=== PATIENT | male | born 1985 | race Caucasian/White ===

== ENCOUNTER 2020-05-10 17:50 | Emergency (ER) | payer OTHER ==
[~2020-05-10] VITALS: Ht 180.3 cm; Wt 100.0 kg
[2020-05-10] MEDS ORDERED: normal saline 1000ML IV soln IVB ONE (18:30)
[2020-05-10] MEDS ORDERED: ketorolac tromethamine 15mg/ml inj. IM ONE (18:40)
[2020-05-10] MEDS ORDERED: iohexol 300mg/ml 100ml inj. ONE (18:52)
--- NOTE | 2020-05-10 18:57 | NUR ---
PT WAS PLACED INTO MY ROOM, I STARTED IV AND ADDY BLOOD AND CT NOW TOOK HIM. PT REPEATS HIMSELF, HE EITHER HAS A HABIT OF REPEATING HIMSELF OR HE HAS A CONCUSSION.
[2020-05-10 19:04] LABS: BASOPHILS # (AUTO) 0.1 X10'3 (0-0.2); BASOPHILS % (AUTO) 0.6 % (0-1); EOSINOPHILS # (AUTO) 0.3 X10'3 (0-0.9); EOSINOPHILS % (AUTO) 2.4 % (0-6); HEMATOCRIT 49.2 % (42.0-52.0); HEMOGLOBIN 16.3 g/dl (14.0-17.9); LYMPHOCYTES # (AUTO) 4.6 X10'3 (1.1-4.8); LYMPHOCYTES % (AUTO) 34.4 % (21-51); MEAN CORPUSCULAR HEMOGLOBIN 29.6 PG (27.0-31.0); MEAN CORPUSCULAR HGB CONC 33.1 g/dL (33.0-36.5); MEAN CORPUSCULAR VOLUME 89.2 FL (78-98); MEAN PLATELET VOLUME 7.6 FL (7.4-10.4); MONOCYTES # (AUTO) 0.7 X10'3 (0-0.9); MONOCYTES % (AUTO) 5.3 % (2-12); NEUTROPHILS # (AUTO) 7.6 X10'3 (1.8-7.7); NEUTROPHILS % (AUTO) 57.3 % (42-75); PLATELET COUNT 320 X10'3 (140-440); RED BLOOD COUNT 5.52 X10'6 (4.70-6.10); WHITE BLOOD COUNT 13.2 X10'3 (4.5-11.0)
[2020-05-10 19:19] LABS: ALANINE AMINOTRANSFERASE 50 U/L (12-78); ALBUMIN/GLOBULIN RATIO 0.9 (1.1-1.5); ALKALINE PHOSPHATASE 113 IU/L (46-116); ANION GAP 14 (8-16); ASPARTATE AMINO TRANSFERASE 27 U/L (10-37); BILIRUBIN,TOTAL 0.3 MG/DL (0.1-1.0); BLOOD UREA NITROGEN 15 MG/DL (7-18); BUN/CREATININE RATIO 15.5 (5.4-32.0); CALCIUM 8.9 MG/DL (8.5-10.1); CHLORIDE 112 MMOL/L (99-107); CREATININE 0.97 MG/DL (0.60-1.10); ETHANOL 0.222 GM/DL (0.0-0.010); GLUCOSE 115 MG/DL (70-104); POTASSIUM 4.3 MMOL/L (3.5-5.1); SODIUM 149 MMOL/L (135-145); TOTAL CARBON DIOXIDE 23.5 MMOL/L (24-32); TOTAL PROTEIN 8.5 G/DL (6.4-8.2); eGFR 88 ML/MIN
[2020-05-10] MEDS ORDERED: acetaminophen 325mg tablet PO ONE (20:00)
--- NOTE | 2020-05-10 20:04 | NUR ---
gave the pt a urinal so he can void
[2020-05-10 20:13] VITALS: BP 143/92
== END 2020-05-10 20:16 ==
LOC: ER 17:51
DX: M54.5 Low back pain (principal); R47.81 Slurred speech; V89.2XXA Person injured in unspecified motor-vehicle accident, traffic, initial encounter; Y93.89 Activity, other specified; Y92.89 Other specified places as the place of occurrence of the external cause; Y99.8 Other external cause status
CPT/HCPCS: 36415; 70450; 71260; 72125; 74177; 80053; 80320; 85025; 85610; 93005; 99285; J7030; Q9967

== ENCOUNTER 2021-05-17 02:48 | Emergency (ER) | payer MEDICAID ==
[~2021-05-17] VITALS: Ht 175.3 cm; Wt 130.0 kg
[2021-05-17 02:57] VITALS: BP 121/57
[2021-05-17] MEDS ORDERED: diphenhydrAMINE 50 mg/ml inj IM ONE (03:40)
[2021-05-17] MEDS ORDERED: haloperidol lactate 5mg/ml inj IM ONE (03:40)
== END 2021-05-17 06:58 | disposition home or self-care (01) ==
LOC: ER 02:49
DX: F15.10 Other stimulant abuse, uncomplicated (principal); M79.606 Pain in leg, unspecified; R45.1 Restlessness and agitation; R11.0 Nausea; Z88.8 Allergy status to other drugs, medicaments and biological substances
CPT/HCPCS: 96372; 99284; J1200; J1630

== ENCOUNTER 2021-08-14 08:26 | Inpatient (IN) | payer MEDICAID ==
[~2021-08-14] VITALS: Ht 177.8 cm; Wt 90.9 kg
[2021-08-14] MEDS ORDERED: ondansetron/PF 4mg/2ml inj IV ONE (08:45)
[2021-08-14] MEDS ORDERED: morphine 4 MG/ML inj SYRINge IV PRN (08:45)
[2021-08-14 09:23] LABS: BASOPHILS # (AUTO) 0.1 X10'3 (0-0.2); EOSINOPHILS % (AUTO) 0.4 % (0-6); HEMATOCRIT 35.4 % (42.0-52.0); HEMOGLOBIN 11.3 g/dl (14.0-17.9); LYMPHOCYTES # (AUTO) 1.8 X10'3 (1.1-4.8); LYMPHOCYTES % (AUTO) 20.9 % (21-51); MEAN CORPUSCULAR HEMOGLOBIN 25.6 PG (27.0-31.0); MEAN CORPUSCULAR VOLUME 79.8 FL (78-98); MEAN PLATELET VOLUME 7.3 FL (7.4-10.4); MONOCYTES # (AUTO) 0.8 X10'3 (0-0.9); MONOCYTES % (AUTO) 9.4 % (2-12); NEUTROPHILS # (AUTO) 5.9 X10'3 (1.8-7.7); NEUTROPHILS % (AUTO) 68.3 % (42-75); PLATELET COUNT 176 X10'3 (140-440); RED BLOOD COUNT 4.44 X10'6 (4.70-6.10); RED CELL DISTRIBUTION WIDTH 19.4 % (11.5-14.5); WHITE BLOOD COUNT 8.6 X10'3 (4.5-11.0)
[2021-08-14] MEDS ORDERED: normal saline 1000ML IV soln IVB ONE (09:25)
--- NOTE | 2021-08-14 09:30 | NUR ---
pt c/o pain and states hes withdrawing from his oxycodone he last took 15 hrs ago. pt hypotensive and mumbled speech to point need to clarify each sentence. pt drowsey and not showing signs of withdraw. dr castillo notified and dc'd pt pain meds and ordered ns bolus. NS started will continue to [facility].
[2021-08-14 09:42] LABS: ALANINE AMINOTRANSFERASE 30 U/L (12-78); ALBUMIN 3.1 G/DL (3.4-5.0); ALBUMIN/GLOBULIN RATIO 0.8 (1.1-1.5); ALKALINE PHOSPHATASE 129 IU/L (46-116); ANION GAP 10 (8-16); ASPARTATE AMINO TRANSFERASE 60 U/L (10-37); BLOOD UREA NITROGEN 28 MG/DL (7-18); BUN/CREATININE RATIO 19.9 (5.4-32.0); CALCIUM 8.8 MG/DL (8.5-10.1); CHLORIDE 83 MMOL/L (99-107); CREATININE 1.41 MG/DL (0.60-1.10); ETHANOL < 0.010 GM/DL (0.0-0.010); GLUCOSE 114 MG/DL (70-104); LIPASE 306 U/L (73-393); POTASSIUM 4.9 MMOL/L (3.5-5.1); TOTAL CARBON DIOXIDE 21.8 MMOL/L (24-32); TOTAL PROTEIN 7.1 G/DL (6.4-8.2); TROPONIN I < 0.04 NG/ML (0.0-0.05); eGFR 57 ML/MIN
[2021-08-14 09:45] LABS: SODIUM 115 MMOL/L (135-145)
[2021-08-14 09:55] LABS: ANISOCYTOSIS 2+; MICROCYTOSIS 1+; PLATELET ESTIMATE NORMAL
[2021-08-14 09:56] LABS: ACANTHOCYTES FEW; BURR CELLS 1+; ELLIPTOCYTES FEW; POLYCHROMASIA FEW
[2021-08-14 09:57] LABS: LARGE PLATELETS FEW
[2021-08-14 10:38] LABS: CLARITY,URINE CLOUDY (Clear); COLOR,URINE YELLOW (Yellow); UA COLLECTION TYPE CLN CATCH MIDSTREAM
[2021-08-14 10:39] LABS: GLUCOSE, URINE NEGATIVE (Neg); KETONES,URINE NEGATIVE (Neg); NITRITES, URINE POSITIVE (Neg); OCCULT BLOOD,URINE MODERATE (Neg); PROTEIN,URINE TRACE mg/dl (Neg)
[2021-08-14 10:41] LABS: LEUKOCYTE ESTERASE ,URINE SMALL (Neg)
[2021-08-14 10:42] LABS: UROBILINOGEN,URINE 0.2 E.U/dL (0.2-1.0)
--- NOTE | 2021-08-14 10:55 | NUR ---
pt had 6 blankets and still wanting blankets and even asked for a popsicle.
[2021-08-14 11:00] LABS: HYALINE CASTS 0-3 /LPF (NEGATIVE); SQUAMOUS EPITHELIAL CELL,UR FEW /LPF (FEW); WBC CLUMPS,URINE MODERATE /HPF (NEGATIVE)
[2021-08-14 11:01] LABS: BACTERIA,URINE 3+ /HPF (Neg); RBC,URINE 20-50 /HPF (0-2); WBC,URINE 30-50 /HPF (0-4)
[2021-08-14 11:12] LABS: URINE AMPHETAMINE SCREEN NEGATIVE (Neg); URINE BARBITUATE SCREEN NEGATIVE (Neg); URINE BENZODIAZEPINES SCREEN NEGATIVE (Neg); URINE CANNABINOID SCREEN NEGATIVE (Neg); URINE COCAINE SCREEN NEGATIVE (Neg); URINE METHADONE SCREEN NEGATIVE (Neg); URINE OPIATE SCREEN POSITIVE (Neg); URINE PHENCYCLIDINE SCREEN NEGATIVE (Neg)
--- NOTE | 2021-08-14 11:45 | NUR ---
Pt is up and standing next to the commode. Stated that he can't use a urinal because his scrotum is swollen. He picked up the commode and held it up like a urinal. Then he urinated on the floor. He mumbles and his speech is slurred. He has and unsteady gait. Assisted back to bed. Pt states that his feet hurt and that he needs pain medication. I explained that his b/p is too low to administer a narcotic. He rambled on about using 90 pain pill reciently.
[2021-08-14] MEDS ORDERED: CefTRIAXone 2gm/D5W 50ml BAG 50 ML IV ONE (12:20)
[2021-08-14] MEDS ORDERED: CARV3.1244 PO (12:32)
[2021-08-14] MEDS ORDERED: OXYC-658 PO (12:32)
[2021-08-14] MEDS ORDERED: SERT-433 PO (12:32)
[2021-08-14] MEDS ORDERED: METF-950 PO (12:32)
[2021-08-14] MEDS ORDERED: MIDO5TAB4 PO (12:32)
[2021-08-14] MEDS ORDERED: HYDR-3686 PO (12:32)
[2021-08-14] MEDS ORDERED: SPIR50TA5 PO (12:32)
[2021-08-14] MEDS ORDERED: PROM25TA14 PO (12:32)
[2021-08-14] MEDS ORDERED: GABA300C PO (12:32)
[2021-08-14] MEDS ORDERED: LISI-790 PO (12:32)
[2021-08-14] MEDS ORDERED: INSU100I45 SQ (12:32)
[2021-08-14] MEDS ORDERED: GABA-530 PO (12:32)
[2021-08-14] MEDS ORDERED: BUME1TAB8 PO (12:32)
[2021-08-14] MEDS ORDERED: FURO40TA4 PO (12:32)
--- NOTE | 2021-08-14 13:41 | NUR ---
Placed pt on 2L NC due to low O2 saturation. Pt keeps removing his O2 sat monitor. He repeatedly asks for 1/2 of ice and warm blankets. It has been explained that he NPO. He occationally yells out that he needs help eventhough he has a call light within reach. He tossed off his blankets and stated that he is leaving if he does not get his ice.
[2021-08-14] MEDS ORDERED: mag hydrox/Alum hydrox/simeth 30ml oral suspension PO PRN (15:35)
[2021-08-14] MEDS ORDERED: potassium Cl 40MEQ/1/2NS 520ml 520 ML IV PRN ×2 (15:35)
[2021-08-14] MEDS ORDERED: magnesium 2GM in 50ml NS 50 ML IV PRN (15:35)
[2021-08-14] MEDS ORDERED: magnesium hydroxide 30ml (MOM) UD suspension PO PRN (15:35)
[2021-08-14] MEDS ORDERED: metoclopramide 5 mg/ml inj IV PRN (15:35)
[2021-08-14] MEDS ORDERED: magnesium Cl slow-release 64mg tablet PO PRN (15:35)
[2021-08-14] MEDS ORDERED: potassium Cl 20 mEq SR tablet PO PRN ×2 (15:35)
[2021-08-14] MEDS ORDERED: magnesium 4gm in 100ml NS 100 ML IV PRN (15:35)
[2021-08-14] MEDS ORDERED: ondansetron/PF 4mg/2ml inj IV PRN (15:35)
[2021-08-14] MEDS ORDERED: acetaminophen 325mg tablet PO PRN (15:35)
[2021-08-14] MEDS ORDERED: MESSAGE TO PHARMACY PO ONE (15:45)
[2021-08-14] MEDS ORDERED: glucagon, human recombinant 1mg kit SUBCUT PRN (15:45)
[2021-08-14] MEDS ORDERED: dextrose 50%-water 50ml dispensing syringe IV PRN ×2 (15:45)
[2021-08-14] MEDS ORDERED: hydrOXYzine 25 MG tablet PO PRN (15:45)
[2021-08-14] MEDS ORDERED: insulin Lispro (HumaLOG) vial - multi-dose SQ SCH (15:45)
[2021-08-14] MEDS ORDERED: dextrose ORAL solution 15 GM/59 ML bottle PO PRN ×2 (15:45)
[2021-08-14] MEDS: furosemide 20 MG/2 ML vial IV SCH ×2 (16:04→22:31)
[2021-08-14 16:55] LABS: HEMOGLOBIN A1C 6.9 % (4.5-6.2)
[2021-08-14 17:18] LABS: PARTIAL THROMBOPLASTIN TIME 29 SECONDS (22-32)
[2021-08-14 20:29] LABS: ALBUMIN 3.1 G/DL (3.4-5.0); ANION GAP 12 (8-16); BLOOD UREA NITROGEN 29 MG/DL (7-18); BUN/CREATININE RATIO 18.4 (5.4-32.0); CALCIUM 8.5 MG/DL (8.5-10.1); CHLORIDE 86 MMOL/L (99-107); CREATININE 1.58 MG/DL (0.60-1.10); GLUCOSE 140 MG/DL (70-104); TOTAL CARBON DIOXIDE 21.2 MMOL/L (24-32); eGFR 50 ML/MIN
[2021-08-14 20:40] LABS: SODIUM 119 MMOL/L (135-145)
[2021-08-14] MEDS ORDERED: INSULIN LISPRO 7 UNIT SQ SCH (21:00)
[2021-08-14] MEDS ORDERED: temazepam 15mg capsule PO PRN (21:00)
[2021-08-14] MEDS: insulin glargine (Lantus) pen - multi-dose SQ SCH (21:00)
[2021-08-14] MEDS: heparin, porcine 5000 units/ml vial SQ SCH (21:04)
[2021-08-14] MEDS: docusate sod 100mg capsule PO SCH (21:04)
[2021-08-14] MEDS: carVEDilol 3.125mg tablet PO SCH (21:04)
[2021-08-14] MEDS: gabapentin 300mg capsule PO SCH (21:08)
[2021-08-14] MEDS: K and/or MAG REPLACEMENT MC SCH (21:10)
[2021-08-14] MEDS: midodrine 5mg tablet PO SCH (22:59)
[2021-08-15 00:45] VITALS: BP 97/66
--- NOTE | 2021-08-15 00:45 | NUR ---
PATIENT ADMITTED TO ROOM 360B FROM ER FOR HYPONATREMIA. PLACED COMFORTABLE IN BED. VITAL SIGNS TAKEN AND RECORDED.
[2021-08-15 03:01] LABS: BASOPHILS % (AUTO) 0.2 % (0-1); EOSINOPHILS # (AUTO) 0.1 X10'3 (0-0.9); EOSINOPHILS % (AUTO) 0.6 % (0-6); HEMATOCRIT 32.4 % (42.0-52.0); HEMOGLOBIN 10.5 g/dl (14.0-17.9); LYMPHOCYTES # (AUTO) 1.7 X10'3 (1.1-4.8); LYMPHOCYTES % (AUTO) 18.2 % (21-51); MEAN CORPUSCULAR HEMOGLOBIN 25.5 PG (27.0-31.0); MEAN CORPUSCULAR HGB CONC 32.5 g/dL (33.0-36.5); MEAN CORPUSCULAR VOLUME 78.3 FL (78-98); MEAN PLATELET VOLUME 7.4 FL (7.4-10.4); MONOCYTES % (AUTO) 10.9 % (2-12); NEUTROPHILS # (AUTO) 6.6 X10'3 (1.8-7.7); NEUTROPHILS % (AUTO) 70.1 % (42-75); PLATELET COUNT 186 X10'3 (140-440); RED BLOOD COUNT 4.14 X10'6 (4.70-6.10); RED CELL DISTRIBUTION WIDTH 19.3 % (11.5-14.5); WHITE BLOOD COUNT 9.4 X10'3 (4.5-11.0)
[2021-08-15 03:19] LABS: ALANINE AMINOTRANSFERASE 31 U/L (12-78); ALBUMIN/GLOBULIN RATIO 0.8 (1.1-1.5); ALKALINE PHOSPHATASE 124 IU/L (46-116); ANION GAP 12 (8-16); ASPARTATE AMINO TRANSFERASE 51 U/L (10-37); BILIRUBIN,TOTAL 2.1 MG/DL (0.1-1.0); BLOOD UREA NITROGEN 28 MG/DL (7-18); BUN/CREATININE RATIO 18.8 (5.4-32.0); CALCIUM 8.6 MG/DL (8.5-10.1); CHLORIDE 88 MMOL/L (99-107); CREATININE 1.49 MG/DL (0.60-1.10); GLUCOSE 145 MG/DL (70-104); MAGNESIUM 2.4 MG/DL (1.5-2.4); POTASSIUM 4.5 MMOL/L (3.5-5.1); SODIUM 122 MMOL/L (135-145); TOTAL CARBON DIOXIDE 22.3 MMOL/L (24-32); TOTAL PROTEIN 6.9 G/DL (6.4-8.2); eGFR 53 ML/MIN
--- NOTE | 2021-08-15 05:00 | NUR ---
CALLED ALAN KLEIN AND WAS INFORMED OF PATIENT'S VERY IRREGULAR HEART RATE FROM 90'S TO 190'S EKG WAS DONE AND WAS SHOWED TO HIM WITH NO NEW ORDERS
--- NOTE | 2021-08-15 06:31 | NUR ---
Problems reprioritized. Patient report given, questions answered & plan of care reviewed with NEMESIO RAI.
[2021-08-15 07:00] VITALS: BP 90/50
[2021-08-15] MEDS: K and/or MAG REPLACEMENT MC SCH ×2 (08:00→20:00)
[2021-08-15] MEDS: sertraline 50mg tablet PO SCH (08:00)
[2021-08-15] MEDS: midodrine 5mg tablet PO SCH ×3 (08:11→19:53)
[2021-08-15] MEDS: docusate sod 100mg capsule PO SCH ×2 (08:11→19:52)
[2021-08-15] MEDS: bumetanide 1mg tablet PO SCH (08:13)
[2021-08-15] MEDS: gabapentin 100mg capsule PO SCH (08:13)
[2021-08-15] MEDS: carVEDilol 3.125mg tablet PO SCH ×2 (08:14→19:45)
[2021-08-15] MEDS: spironolactone 50 MG tablet PO SCH (08:15)
[2021-08-15] MEDS: CefTRIAXone/D5W-Rocephin 1gm 50 ML IV SCH (08:16)
[2021-08-15] MEDS: heparin, porcine 5000 units/ml vial SQ SCH ×2 (08:17→19:45)
[2021-08-15 09:19] LABS: ALBUMIN 2.9 G/DL (3.4-5.0); ANION GAP 11 (8-16); BLOOD UREA NITROGEN 29 MG/DL (7-18); BUN/CREATININE RATIO 20.7 (5.4-32.0); CALCIUM 8.6 MG/DL (8.5-10.1); CHLORIDE 87 MMOL/L (99-107); GLUCOSE 181 MG/DL (70-104); POTASSIUM 4.2 MMOL/L (3.5-5.1); eGFR 57 ML/MIN
[2021-08-15] MEDS: furosemide 20 MG/2 ML vial IV SCH ×3 (09:32→21:50)
[2021-08-15 09:35] LABS: SODIUM 120 MMOL/L (135-145)
--- NOTE | 2021-08-15 09:45 | NUR ---
First time with patient Addendum: 08/15/21 at 0955 by Kristi Yi - Student NIKIA Amended: Links added.
--- NOTE | 2021-08-15 09:52 | NUR ---
Patient was unable to remember when his last bowel movement was Addendum: 08/15/21 at 0955 by Kristi Yi - Student NIKIA Amended: Links added.
--- NOTE | 2021-08-15 11:34 | NUR ---
Received Call from Jory at [facility] who has been following Pt for 2 weeks. At her last phone contact pt was living in a hotel noted to be slurring his words. Jory RN stated his last EF was 10-15% and had been worked up for LVAD. Pt did/t want to give up swimming or showering to have it. Jory advised he call and ambulance to eval his condition
[2021-08-15 14:36] LABS: ANION GAP 12 (8-16); BLOOD UREA NITROGEN 27 MG/DL (7-18); BUN/CREATININE RATIO 19.9 (5.4-32.0); CALCIUM 8.5 MG/DL (8.5-10.1); CHLORIDE 88 MMOL/L (99-107); CREATININE 1.36 MG/DL (0.60-1.10); GLUCOSE 117 MG/DL (70-104); POTASSIUM 4.7 MMOL/L (3.5-5.1); SODIUM 121 MMOL/L (135-145); TOTAL CARBON DIOXIDE 21.5 MMOL/L (24-32); eGFR 59 ML/MIN
--- NOTE | 2021-08-15 14:37 | NUR ---
Called report to Santino RAI on Tele floor. Pt to be transferred for cardiac monitoring.
[2021-08-15 15:00] VITALS: BP 99/60
--- NOTE | 2021-08-15 15:00 | NUR ---
Pt tx via WC to 3012B. all belongings followed from closet containing multiple pill bottles. Recorded and sent to Rx for storage.
--- NOTE | 2021-08-15 15:20 | NUR ---
Received pt from [facility]. Pt standing next to bed agitated. Able to redirect patient. Pt refusing monitor at this time. Pt educated.
[2021-08-15 18:00] VITALS: BP 139/87
--- NOTE | 2021-08-15 18:30 | NUR ---
Patient in room PCU 3012. I have received report from Santino RAI and had the opportunity to ask questions and assume patient care.
[2021-08-15] MEDS: lactobacillus rhamnosus 10,000 MMU CELLS/CAPSULE PO SCH (19:45)
[2021-08-15] MEDS: gabapentin 300mg capsule PO SCH (19:45)
[2021-08-15] MEDS: oxyCODONE IR 5mg (immed. release) tablet PO PRN (19:52)
[2021-08-15] MEDS: LORazepam 1 MG tablet PO PRN (19:52)
[2021-08-15] MEDS: insulin glargine (Lantus) pen - multi-dose SQ SCH (21:00)
[2021-08-15 21:03] LABS: ALBUMIN 3.1 G/DL (3.4-5.0); ANION GAP 12 (8-16); BLOOD UREA NITROGEN 26 MG/DL (7-18); BUN/CREATININE RATIO 18.6 (5.4-32.0); CALCIUM 8.7 MG/DL (8.5-10.1); CHLORIDE 85 MMOL/L (99-107); GLUCOSE 132 MG/DL (70-104); POTASSIUM 4.1 MMOL/L (3.5-5.1); eGFR 57 ML/MIN
[2021-08-15 21:07] LABS: SODIUM 120 MMOL/L (135-145)
[2021-08-15 22:00] VITALS: BP 100/87
[2021-08-16 02:00] VITALS: BP 107/69
[2021-08-16 02:24] LABS: BASOPHILS # (AUTO) 0.1 X10'3 (0-0.2); BASOPHILS % (AUTO) 0.8 % (0-1); EOSINOPHILS # (AUTO) 0.1 X10'3 (0-0.9); EOSINOPHILS % (AUTO) 0.9 % (0-6); HEMATOCRIT 31.8 % (42.0-52.0); HEMOGLOBIN 10.1 g/dl (14.0-17.9); LYMPHOCYTES # (AUTO) 1.8 X10'3 (1.1-4.8); LYMPHOCYTES % (AUTO) 21.1 % (21-51); MEAN CORPUSCULAR HEMOGLOBIN 25.1 PG (27.0-31.0); MEAN CORPUSCULAR HGB CONC 31.6 g/dL (33.0-36.5); MEAN CORPUSCULAR VOLUME 79.3 FL (78-98); MEAN PLATELET VOLUME 7.3 FL (7.4-10.4); MONOCYTES % (AUTO) 11.5 % (2-12); NEUTROPHILS # (AUTO) 5.7 X10'3 (1.8-7.7); NEUTROPHILS % (AUTO) 65.7 % (42-75); PLATELET COUNT 186 X10'3 (140-440); RED BLOOD COUNT 4.01 X10'6 (4.70-6.10); RED CELL DISTRIBUTION WIDTH 19.2 % (11.5-14.5); WHITE BLOOD COUNT 8.7 X10'3 (4.5-11.0)
[2021-08-16 02:39] LABS: ALANINE AMINOTRANSFERASE 29 U/L (12-78); ALBUMIN/GLOBULIN RATIO 0.8 (1.1-1.5); ALKALINE PHOSPHATASE 124 IU/L (46-116); ANION GAP 10 (8-16); ASPARTATE AMINO TRANSFERASE 42 U/L (10-37); BLOOD UREA NITROGEN 27 MG/DL (7-18); BUN/CREATININE RATIO 18.8 (5.4-32.0); CALCIUM 8.4 MG/DL (8.5-10.1); CHLORIDE 87 MMOL/L (99-107); CREATININE 1.44 MG/DL (0.60-1.10); GLUCOSE 110 MG/DL (70-104); MAGNESIUM 2.3 MG/DL (1.5-2.4); POTASSIUM 4.4 MMOL/L (3.5-5.1); TOTAL CARBON DIOXIDE 23.1 MMOL/L (24-32); TOTAL PROTEIN 6.6 G/DL (6.4-8.2); eGFR 55 ML/MIN
[2021-08-16 02:48] LABS: SODIUM 120 MMOL/L (135-145)
[2021-08-16 02:58] LABS: PLATELET ESTIMATE NORMAL
[2021-08-16 02:59] LABS: ACANTHOCYTES FEW; ANISOCYTOSIS 2+; ELLIPTOCYTES FEW; MICROCYTOSIS 1+
[2021-08-16 03:00] LABS: HYPOCHROMASIA 1+
[2021-08-16 06:00] VITALS: BP 97/54
--- NOTE | 2021-08-16 06:00 | NUR ---
Patient in room PCU 3012. I have received report from Liza RAI and had the opportunity to ask questions and assume patient care.
--- NOTE | 2021-08-16 07:30 | NUR ---
Pt drowsy, verbal, rr wnl sats 97, no c/o pain- to drowsy. sl iv, 1+E ble, ls diminished bases, clear ant uppers.
--- NOTE | 2021-08-16 07:52 | NUR ---
Problems reprioritized. Patient report given, questions answered & plan of care reviewed with Kate RAI.
[2021-08-16] MEDS: K and/or MAG REPLACEMENT MC SCH ×2 (08:00→18:49)
--- NOTE | 2021-08-16 08:00 | NUR ---
Patient in room PCU 3012. I have received report from and had the opportunity to ask questions and assume patient care.Bert RAI
[2021-08-16] MEDS: spironolactone 50 MG tablet PO SCH (08:32)
[2021-08-16] MEDS: gabapentin 100mg capsule PO SCH (08:32)
[2021-08-16] MEDS: midodrine 5mg tablet PO SCH ×3 (08:32→21:55)
[2021-08-16] MEDS: docusate sod 100mg capsule PO SCH ×2 (08:32→20:00)
[2021-08-16] MEDS: carVEDilol 3.125mg tablet PO SCH ×2 (08:32→21:56)
[2021-08-16] MEDS: CefTRIAXone/D5W-Rocephin 1gm 50 ML IV SCH (08:32)
[2021-08-16] MEDS: lactobacillus rhamnosus 10,000 MMU CELLS/CAPSULE PO SCH ×2 (08:32→21:56)
[2021-08-16] MEDS: bumetanide 1mg tablet PO SCH (08:32)
[2021-08-16] MEDS: sertraline 50mg tablet PO SCH (08:32)
[2021-08-16] MEDS: heparin, porcine 5000 units/ml vial SQ SCH ×2 (08:33→21:55)
[2021-08-16] MEDS: furosemide 20 MG/2 ML vial IV SCH ×2 (08:34→13:00)
[2021-08-16 09:19] LABS: ANION GAP 11 (8-16); BLOOD UREA NITROGEN 27 MG/DL (7-18); BUN/CREATININE RATIO 20.3 (5.4-32.0); CALCIUM 8.7 MG/DL (8.5-10.1); CHLORIDE 88 MMOL/L (99-107); CREATININE 1.33 MG/DL (0.60-1.10); GLUCOSE 101 MG/DL (70-104); POTASSIUM 4.9 MMOL/L (3.5-5.1); SODIUM 123 MMOL/L (135-145); TOTAL CARBON DIOXIDE 23.7 MMOL/L (24-32); eGFR 61 ML/MIN
--- NOTE | 2021-08-16 09:45 | NUR ---
Patient removed IV and refuses to have another one placed.
--- NOTE | 2021-08-16 09:56 | NUR ---
Ambulated patient 150 ft with standby, steady on feet.
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
--- NOTE | 2021-08-16 10:41 | NUR ---
request from Kate to start IV in pt arm since he is refusing to have it done by her. He is up in chair against window and wants his right arm used, which is against window. he is unwilling to transfer from chair to bed to have IV placed and wants me to work on him "right where he is". i explained this was not possible and inquired why he was opposed to lay in the bed long enough to get new iv and then return to chair. answer was vague. he declined though after 4 requests.
--- NOTE | 2021-08-16 11:03 | NUR ---
Paged Dr. Solomon PAGER ID: [phone] MESSAGE: [facility] rm [id number] Rico Olson, Patient pulled out PIV, continues to refuse getting an PIV placed. @ nurses tried, he refused. Unable to give Lasix IV medication at 1300. Kate RN [phone]
--- NOTE | 2021-08-16 13:14 | NUR ---
Oliver Solomon PAGER ID: [phone] MESSAGE: [facility] [id number] Rico Olson, his pallative RN Li Gupta is here in the room. Patient wants to be Hospice Patient. Please come to [facility] or call Li [phone]. Thank you Kate RAI [phone]
--- NOTE | 2021-08-16 13:15 | NUR ---
Dr. Solomon called back and spoke directly with Pallative Care Nurse Li GAITANN, RN regarding Hospice care for patient in [facility], near parents.
[2021-08-16] MEDS: sodium chloride 1gm tablet PO SCH ×2 (13:21→21:56)
[2021-08-16] MEDS: LORazepam 1 MG tablet PO PRN ×2 (13:31→21:56)
[2021-08-16] MEDS: oxyCODONE IR 5mg (immed. release) tablet PO PRN ×2 (13:49→21:56)
[2021-08-16 14:45] LABS: ALBUMIN 2.9 G/DL (3.4-5.0); ANION GAP 12 (8-16); BLOOD UREA NITROGEN 27 MG/DL (7-18); BUN/CREATININE RATIO 19.7 (5.4-32.0); CALCIUM 8.3 MG/DL (8.5-10.1); CHLORIDE 86 MMOL/L (99-107); CREATININE 1.37 MG/DL (0.60-1.10); GLUCOSE 149 MG/DL (70-104); POTASSIUM 4.8 MMOL/L (3.5-5.1); TOTAL CARBON DIOXIDE 22.4 MMOL/L (24-32); eGFR 58 ML/MIN
[2021-08-16 14:51] LABS: SODIUM 120 MMOL/L (135-145)
[2021-08-16 15:00] VITALS: BP 120/74
[2021-08-16] MEDS: levoFLOXACIN 500mg tablet PO SCH (15:31)
--- NOTE | 2021-08-16 18:26 | NUR ---
Problems reprioritized. Patient report given, questions answered & plan of care reviewed with Liza RAI.
[2021-08-16 18:30] VITALS: BP 102/68
--- NOTE | 2021-08-16 18:39 | NUR ---
Patient in room PCU 3012. I have received report from Kate RAI and had the opportunity to ask questions and assume patient care.
[2021-08-16] MEDS: insulin glargine (Lantus) pen - multi-dose SQ SCH (21:00)
[2021-08-16] MEDS: gabapentin 300mg capsule PO SCH (21:56)
[2021-08-16] MEDS: furosemide 20MG tablet PO SCH (21:56)
[2021-08-16 22:00] VITALS: BP 95/59
[2021-08-17 03:00] VITALS: BP 108/69
--- NOTE | 2021-08-17 06:30 | NUR ---
Received report from Liza RAI.
[2021-08-17] MEDS: K and/or MAG REPLACEMENT MC SCH (08:00)
--- NOTE | 2021-08-17 08:00 | NUR ---
PT refused 0600 VS. Asking for PRN pain medication.
[2021-08-17] MEDS: docusate sod 100mg capsule PO SCH (08:55)
[2021-08-17] MEDS: sodium chloride 1gm tablet PO SCH (08:55)
[2021-08-17] MEDS: carVEDilol 3.125mg tablet PO SCH (08:55)
[2021-08-17] MEDS: sertraline 50mg tablet PO SCH (08:55)
[2021-08-17] MEDS: gabapentin 100mg capsule PO SCH (08:55)
[2021-08-17] MEDS: bumetanide 1mg tablet PO SCH (08:55)
[2021-08-17] MEDS: furosemide 20MG tablet PO SCH (08:56)
[2021-08-17] MEDS: midodrine 5mg tablet PO SCH (08:56)
[2021-08-17] MEDS: spironolactone 50 MG tablet PO SCH (08:56)
[2021-08-17] MEDS: lactobacillus rhamnosus 10,000 MMU CELLS/CAPSULE PO SCH (08:56)
[2021-08-17] MEDS: heparin, porcine 5000 units/ml vial SQ SCH (08:56)
[2021-08-17] MEDS: oxyCODONE IR 5mg (immed. release) tablet PO PRN (09:03)
--- NOTE | 2021-08-17 09:43 | NUR ---
Refusing IV and labs. MD aware.
[2021-08-17] MEDS ORDERED: LEVO500T89 PO (10:14)
[2021-08-17] MEDS ORDERED: OXYC-658 PO (10:14)
[2021-08-17] MEDS ORDERED: SODI1TAB2 PO (10:17)
[2021-08-17] MEDS: levoFLOXACIN 500mg tablet PO SCH (10:58)
[2021-08-17 11:00] VITALS: BP 102/74
--- NOTE | 2021-08-17 12:05 | NUR ---
Pt refusing 1200 Blood sugar check. Addendum: 08/17/21 at 1205 by Santino Jasso RN Amended: Links added.
--- NOTE | 2021-08-17 14:22 | NUR ---
PT discharged home. Instructions understood and prescription given. Pt verbalized understanding of follow up and medications were returned from pharmacy. Ride was arranged for patient. VSS, steady gait.
== END 2021-08-17 14:12 | disposition home or self-care (01) | DRG 280 ==
LOC: ER 08:26 → UNDOADMIN 15:33 → ED HOLD 15:33 → SUR 3N 08-15 00:40 → ED HOLD 08-15 00:40 → PCU 3S 08-15 14:50
PROVIDERS: ADMIT Family Medicine; ATTEND Family Medicine
DX: K70.31 Alcoholic cirrhosis of liver with ascites (principal); K70.40 Alcoholic hepatic failure without coma; J90 Pleural effusion, not elsewhere classified; N17.9 Acute kidney failure, unspecified; E87.1 Hypo-osmolality and hyponatremia; I95.9 Hypotension, unspecified; E11.22 Type 2 diabetes mellitus with diabetic chronic kidney disease; E88.09 Other disorders of plasma-protein metabolism, not elsewhere classified; N39.0 Urinary tract infection, site not specified; B96.89 Other specified bacterial agents as the cause of diseases classified elsewhere; B19.20 Unspecified viral hepatitis C without hepatic coma; F32.9 Major depressive disorder, single episode, unspecified; F11.93 Opioid use, unspecified with withdrawal; G89.4 Chronic pain syndrome; D64.9 Anemia, unspecified; E66.01 Morbid (severe) obesity due to excess calories; N18.9 Chronic kidney disease, unspecified; F60.9 Personality disorder, unspecified; Z51.5 Encounter for palliative care; Z68.28 Body mass index [BMI] 28.0-28.9, adult; Z88.8 Allergy status to other drugs, medicaments and biological substances
CPT/HCPCS: 36415; 71045; 74176; 80048; 80053; 80305; 80320; 81001; 82948; 83036; 83690; 83735; 84295; 84484; 85008; 85025; 85610; 85730; 87077; 87081; 87088; 87186; 93005; 96361; 96374; 97161; 97530; 99285; G0378; J0696; J1644; J1815; J1940; J7030